=== PATIENT | female | born 1950 | race Two or more races ===

== ENCOUNTER → 2023-08-28 08:40 | Outpatient (CLI) | payer OTHER | END | disposition home or self-care (01) | LOC: NUCLEAR 08:40 | PROVIDERS: ATTEND Internal Medicine Gastroenterology | DX: K81.1 Chronic cholecystitis (principal) | CPT/HCPCS: 78227; A9537 ==

== ENCOUNTER 2023-09-17 07:23 | Outpatient (CLI) | payer OTHER | END 2023-09-17 07:28 | disposition home or self-care (01) | LOC: RX STUDY 07:23 | PROVIDERS: ATTEND Internal Medicine Gastroenterology | DX: R13.19 Other dysphagia (principal) ==

== ENCOUNTER 2023-10-02 07:14 | Outpatient (CLI) | payer OTHER | END 2023-10-02 07:19 | disposition home or self-care (01) | LOC: SONOGRAMA 07:14 | PROVIDERS: ATTEND Internal Medicine Gastroenterology | DX: R10.0 Acute abdomen (principal) ==

== ENCOUNTER 2024-04-23 07:01 | Outpatient (CLI) | payer OTHER | END 2024-04-23 14:57 | disposition home or self-care (01) | LOC: MRI 07:01 | DX: K80.20 Calculus of gallbladder without cholecystitis without obstruction (principal) | CPT/HCPCS: 74181 ==

== ENCOUNTER 2024-05-27 07:24 | Outpatient (CLI) | payer OTHER | END 2024-05-27 07:32 | disposition home or self-care (01) | LOC: RAD 07:24 | PROVIDERS: ATTEND Internal Medicine | DX: R10.9 Unspecified abdominal pain (principal); M25.512 Pain in left shoulder ==

== ENCOUNTER 2024-06-22 09:25 | Outpatient (CLI) | payer OTHER | END 2024-06-22 09:32 | disposition home or self-care (01) | LOC: MRI 09:25 | PROVIDERS: ATTEND Internal Medicine | DX: M25.512 Pain in left shoulder (principal) | CPT/HCPCS: 73218 ==

== ENCOUNTER 2024-10-08 07:43 | Outpatient (CLI) | payer OTHER | END 2024-10-08 07:44 | disposition home or self-care (01) | LOC: NUCLEAR 07:43 | PROVIDERS: ATTEND Internal Medicine Gastroenterology | DX: R10.13 Epigastric pain (principal) | CPT/HCPCS: 78227; A9537 ==